=== PATIENT | male | born 1980 | race Caucasian/White ===

== ENCOUNTER 2022-03-18 12:31 | Emergency (ER) | payer SELFPAY ==
[~2022-03-18] VITALS: Ht 185.4 cm; Wt 122.0 kg
[2022-03-18 14:22] LABS: CLARITY URINE CLEAR (CLEAR); COLOR URINE YELLOW (YELLOW); KETONES URINE TRACE (NEGATIVE); LEUKOCYTE ESTERASE URINE NEGATIVE (NEGATIVE); NITRITE URINE NEGATIVE (NEGATIVE); OCCULT BLOOD URINE 3+ (NEGATIVE); PROTEIN URINE 1+ (NEGATIVE); SPECIFIC GRAVITY URINE 1.032 (1.005-1.030)
[2022-03-18 14:57] LABS: BASOPHILS % 0.2 % (0.0-2.0); HEMOGLOBIN. 15.6 g/dL (14.0-18.0); MEAN CORPUSCULAR HEMOGLOBIN 28.7 pg (28.0-32.0); MEAN CORPUSCULAR VOLUME 86.5 fL (80.0-94.0); MEAN PLATELET VOLUME 9.4 fl (7.4-10.4); MONOCYTES % 2.9 % (2.0-8.0); NEUTROPHILS % 88.9 % (40.0-76.0); PLATELET 311 x1000/uL (130-400); RED BLOOD CELL COUNT 5.43 mill/uL (4.7-6.1); RED CELL DISTRIBUTION WIDTH 13.6 % (11.6-14.6)
[2022-03-18 15:02] LABS: CHLORIDE 113 mEq/L (98-107)
[2022-03-18] MEDS ORDERED: SODIUM CHLORIDE 0.9% 1,000 ML IV ONE (15:15)
[2022-03-18] MEDS ORDERED: KETOROLAC 30MG/ML VIAL IV NR (15:30)
[2022-03-18] MEDS ORDERED: ONDA4TAB5 MT (16:30)
[2022-03-18] MEDS ORDERED: TAMS-11 MT (16:30)
[2022-03-18] MEDS ORDERED: IBUP-2028 MT (16:30)
[2022-03-18 17:00] VITALS: BP 145/70
== END 2022-03-18 17:00 | disposition home or self-care (01) ==
LOC: ER 12:31
DX: N20.0 Calculus of kidney (principal); R31.0 Gross hematuria; M41.86 Other forms of scoliosis, lumbar region
CPT/HCPCS: 36415; 76770; 80048; 81003; 85025; 96361; 96374; 99284; J1885